=== PATIENT | male | born 1950 | race Caucasian/White ===

== ENCOUNTER 2019-08-20 06:16 | Day surgery (SDC) | payer MEDICARE, BC ==
[~2019-08-20] VITALS: Ht 170.2 cm; Wt 110.5 kg
[2019-08-20] VITALS (11 sets, daily range): BP systolic 117–168; BP diastolic 71–94; PULSE 64–94; TEMP 98–98.8
[2019-08-20] MEDS ORDERED: PRILOSEC 20MG20 MG PO (06:53)
[2019-08-20] MEDS ORDERED: CRESTOR5 MG PO (06:54)
[2019-08-20] MEDS ORDERED: TOPROL XL100 MG PO (06:54)
[2019-08-20] MEDS ORDERED: FLONASE NASAL S16 GM NS (06:55)
[2019-08-20] MEDS ORDERED: LEVAQUIN 5500 MG/TA1 PO (06:58)
[2019-08-20] MEDS ORDERED: EPA FISH OIL1 SGL PO (06:59)
[2019-08-20] MEDS ORDERED: THE MEDICINE S200 M2 PO (07:00)
[2019-08-20] MEDS ORDERED: ASPIRIN E.C. 8181 MG PO (07:01)
[2019-08-20] MEDS ORDERED: GLUCOSAMINE & C1 CA2 PO (07:01)
[2019-08-20] MEDS ORDERED: MULTI VITAMINS1 TAB PO (07:01)
[2019-08-20] MEDS ORDERED: [UNRECOGNIZED DRUG - REMARK] PO (07:06)
--- NOTE | 2019-08-20 09:50 | NUR ---
PATIENT ADMITED INTO ROOM 322 POST OP. A&O. VSS. DENIES PAIN. GANDARA TO DD WITH MOD AMOUNTS OF CLEAR YELLOW URINE NOTED. CBI INFUSING AT SLOW RATE. IV FLUIDS INFUSING INTO LEFT HAND IV. NO C/O N/V. HEAD TO TOE WNL. NO FAMILY AT BEDSIDE. ORIENTED TO ROOM. CALL LIGHT IN REACH.
--- NOTE | 2019-08-21 02:21 | NUR ---
Patient doing well tonight. alert and oriented. no c/o pain. mcmillan draining clear yellow urine. CBI infusing at a slow rate. IV to INT per orders. took scheduled medications without issue. no further need at this time. will continue to monitor.
[2019-08-21 03:45] VITALS: BP 133/67; PULSE 74; TEMP 97.8
[2019-08-21 07:55] VITALS: BP 158/97; PULSE 78; TEMP 97.4
[2019-08-21 11:57] VITALS: BP 153/83; PULSE 79; TEMP 98.4
--- NOTE | 2019-08-21 14:15 | NUR ---
Dr. Lopez saw patient. Jacobson catheter primed and pulled in AM. Voided clear yellow urine without difficulty. No complaints. Dismissed to home per w/c.
--- NOTE | 2019-08-21 15:33 | NUR ---
Plan: Plans to return to home in [place] independently. Assess: Patient reports that his sister Viktoriya Ellis as emergency contact. Patient reports that Dr. Chiu has a copy of the DPOA. Patient indicated PCP is Dr. Chiu, uses [facility] for RX. Patient reports that he uses a [facility]ace for Drop foot. Patient idnciated that he is able to drive home.Patient denies having any additonal concerns. Action: SW educated on services and supports. No additonal services.
== END 2019-08-21 14:15 | disposition home or self-care (01) ==
LOC: SDCO 06:16 → SURG 09:50 → SDCO 08-21 14:15
DX: N32.0 Bladder-neck obstruction (principal); E78.00 Pure hypercholesterolemia, unspecified; I10 Essential (primary) hypertension; K21.9 Gastro-esophageal reflux disease without esophagitis; M19.90 Unspecified osteoarthritis, unspecified site; Z85.46 Personal history of malignant neoplasm of prostate; Z90.79 Acquired absence of other genital organ(s); Z95.5 Presence of coronary angioplasty implant and graft; Z79.82 Long term (current) use of aspirin; Z79.51 Long term (current) use of inhaled steroids; Z88.2 Allergy status to sulfonamides; Z83.3 Family history of diabetes mellitus; Z82.49 Family history of ischemic heart disease and other diseases of the circulatory system; Z80.8 Family history of malignant neoplasm of other organs or systems; Z84.1 Family history of disorders of kidney and ureter; Z80.52 Family history of malignant neoplasm of bladder; Z88.1 Allergy status to other antibiotic agents
CPT/HCPCS: OP; J0690; J1100; J2370; J2405; J2704; J3010; J3301; J7120

== ENCOUNTER → 2021-09-18 | Outpatient (CLI) | payer MEDICARE, BC ==
[~2021-09-18] MED LIST: ASPIRIN E.C. 8181 MG PO; CRESTOR5 MG PO; EPA FISH OIL1 SGL PO; FLONASE NASAL S16 GM NS; GLUCOSAMINE & C1 CA2 PO; LEVAQUIN 5500 MG/TA1 PO; MULTI VITAMINS1 TAB PO; PRILOSEC 20MG20 MG PO; THE MEDICINE S200 M2 PO; TOPROL XL100 MG PO; [UNRECOGNIZED DRUG - REMARK] PO
== END ==
LOC: COL.RAD 12:24
DX: J98.6 Disorders of diaphragm (principal); N13.4 Hydroureter; J98.11 Atelectasis; L90.5 Scar conditions and fibrosis of skin; N28.89 Other specified disorders of kidney and ureter

== ENCOUNTER 2022-01-02 14:10 | Day surgery (SDC) | payer MEDICARE, BC ==
[~2022-01-02] VITALS: Ht 170.2 cm; Wt 101.3 kg
[2022-01-02] MEDS ORDERED: COZAAR 50MG50 MG/TAB PO (14:48)
[2022-01-02 15:00] VITALS: PULSE 77; TEMP 99
--- NOTE | 2022-01-02 15:32 | NUR ---
Gordy Aviles CRNA is notified of BP 165/93. Patient took his home BP medications per his normal schedule - see reconcilled medications for details. Gordy Aviles acknowledges the BP value and no further orders are received.
--- NOTE | 2022-01-02 17:00 | NUR ---
Patient is resting and awaits surgery. IV fluids infusing. Call light in reach.
--- NOTE | 2022-01-02 18:00 | NUR ---
Dr. Lopez in the room and talks with the patient prior to surgery. All questions answered.
[2022-01-02 19:25] VITALS: BP 145/85; PULSE 67; TEMP 98
--- NOTE | 2022-01-02 19:25 | NUR ---
PT ARRIVES VIA BED FROM PACU, IS ALERT AND ORIENTED X4. HAS IVF TO LEFT HAND INFUSING WITHOUT PROBLEM. SISTER NOTIFIED OF PTS ROOM NUMBER.
[2022-01-02 19:40] VITALS: BP 155/59; PULSE 74
[2022-01-02 19:55] VITALS: BP 160/90; PULSE 72
[2022-01-02 20:10] VITALS: BP 163/81; PULSE 65
--- NOTE | 2022-01-02 20:15 | NUR ---
PT HAS EATEN SANDWICH AND VOIDED. DENIES PAIN. READY TO GO HOME.
[2022-01-02 20:40] VITALS: BP 174/81; PULSE 72; TEMP 97.9
--- NOTE | 2022-01-02 20:40 | NUR ---
DISCHARGE INSTRUCTIONS REVIEWED WITH PT. REMOVED INT TO LEFT HAND, ANGIOCATH INTACT. PT IS DRESSED AND READY TO DC.
--- NOTE | 2022-01-02 20:45 | NUR ---
PT TAKEN VIA W/C TO PRIVATE CAR. PERSONAL BELONGINGS AND COPY OF DISCHARGE INSTRUCTIONS SENT WITH PT.
== END 2022-01-02 20:45 | disposition home or self-care (01) ==
LOC: SDCO 14:10 → SURG 19:40 → SDCO 20:45
DX: N13.30 Unspecified hydronephrosis (principal); N13.70 Vesicoureteral-reflux, unspecified
CPT/HCPCS: OP; J0690; J1100; J2405; J2704; J3010; J7120; Q9967